=== PATIENT | female | born 1990 | race Caucasian/White ===

== ENCOUNTER 2019-02-17 21:44 | Inpatient (IN) | payer OTHER ==
[2019-02-17] MEDS ORDERED: TERBUTALINE 1 MG/ML VIAL SQ PRN (22:56)
[2019-02-17] MEDS ORDERED: CARBOPROST TROMETHAMINE 250 MCG/ML 1 ML AMP IM PRN (22:56)
[2019-02-17] MEDS ORDERED: OXYTOCIN 10 UNIT/ML 1 ML VIAL IM PRN (22:56)
[2019-02-17] MEDS ORDERED: METHYLERGONOVINE 0.2 MG/ML 1 ML AMP IM PRN (22:56)
[2019-02-17] MEDS ORDERED: LIDOCAINE 0.5% (PF) 5 MG/ML (50 ML SDV) SQ PRN (22:56)
[2019-02-17 23:28] LABS: Basophils % (A) 0 %; Eosinophils # (A) 0.1 k/uL (0-0.7); Eosinophils % (A) 1 %; HCT 38.2 % (34.0-46.0); HGB 12.5 gm/dL (11.4-16.0); Lymphocytes # (A) 3.1 k/uL (1.0-4.8); Lymphocytes % (A) 26 %; MCH 27.5 pg (25.0-35.0); MCHC 32.7 g/dL (31.0-37.0); MCV 84.1 fL (80.0-100.0); Mean Platelet Volume 9.8; Monocytes # (A) 0.6 k/uL (0-1.0); Monocytes % (A) 5 %; Neutrophils # (A) 7.7 k/uL (1.3-7.7); Neutrophils % (A) 66 %; Platelet Count 184 k/uL (150-450); RBC 4.54 m/uL (3.80-5.40); RDW 14.2 % (11.5-15.5); WBC 11.6 k/uL (3.8-10.6)
[2019-02-17] MEDS: LACTATED RINGERS 1,000 ML IV SCH (23:36)
[2019-02-17 23:46] VITALS: BMI 29.9
--- NOTE | 2019-02-18 04:16 | P.HPOB ---
History of Present Illness H&P Date: 02/18/19 Chief Complaint: IUP @ 40 1/7 weeks, active labor This is a pleasant 28-year-old 2 para 1001 that presents to labor and delivery with complaints of regular painful contractions. He since he states the contractions started a few hours prior to presentation to the hospital. Patient was a late transfer at [address] Royal. She denied rupture of membranes, vaginal bleeding and notes good movement. Patient's care was essentially uncomplicated. She did have a history of hypothyroidism for which she was been treated with levothyroxine. She is rubella nonimmune and will need MMR post . On bloodwork should a blood type of A+, rubella nonimmune, RPR nonreactive, hepatitis B surface antigen negative, HIV negative, she did pass her one-hour Glucola on 12/05/18 with a result of 132. Group beta strep was negative on 01/15/19. Review of Systems Constitutional: Denies chills, Denies fatigue, Denies fever Ears, nose, mouth and throat: Denies headache Cardiovascular: Reports edema, Reports leg edema Respiratory: Denies dyspnea Gastrointestinal: Denies constipation, Denies diarrhea Genitourinary: Reports Past Medical History Past Medical History: Thyroid Disorder History of Any Multi-Drug Resistant Organisms: None Reported Additional Past Surgical History / Comment(s): [place] teeth removed at age of 25 Past Anesthesia/Blood Transfusion Reactions: No Reported Reaction Past Psychological History: No Psychological Hx Reported Smoking Status: Never smoker - Past Family History Father Family Medical History: Diabetes Mellitus, Hypertension Medications and Allergies Home Medications Medication Instructions Recorded Confirmed Type Levothyroxine Sodium [Synthroid] 112 mcg PO DAILY 02/17/19 02/17/19 History Allergies Allergy/AdvReac Type Severity Reaction Status Date / Time No Known Allergies Allergy Verified 02/17/19 21:55 Exam Osteopathic Statement: *. No significant issues noted on an osteopathic structural exam other than those noted in the History and Physical/Consult. Vital Signs Temp Pulse Resp BP Pulse Ox 02/17/19 23:03 98.1 F 78 16 127/86 97 02/17/19 22:54 98.1 F 78 16 127/86 97 Intake and Output 02/17/19 02/17/19 02/18/19 14:59 22:59 06:59 Other: Weight 84.096 kg Targeted physical exam was performed and the state in general this a well- nourished well-developed female in no acute distress, breathing is noted to be nonlabored, heart has a regular rate and rhythm, abdomen is noted to be gravid and appropriate for gestational age, heart tones were noted to be category 1 she is estuardo every 2-3 minutes, on cervical exam she is completely dilated with a bulging bag of water amniotomy is performed and clear fluid was obtained. Results Result Diagrams: 02/17/19 23:15 Abnormal Lab Results - Last 24 Hours (Table) 02/17/19 Range/Units 23:15 WBC 11.6 H (3.8-10.6) k/uL Assessment and Plan (1) Term Current Visit: Yes Status: Acute Code(s): Z34.90 - ENCNTR FOR SUPRVSN OF NORMAL , UNSP, UNSP TRIMESTER SNOMED Code(s): 79654435 (2) Active labor Current Visit: Yes Status: Acute Code(s): MHS8835 - SNOMED Code(s): 868769603 Plan: Patient is admitted for expectant management, anticipate spontaneous vaginal delivery. Plan MMR post delivery.
[2019-02-18] MEDS ORDERED: WITCH HAZEL 1 EACH MED..PAD TOPICAL PRN (04:18)
[2019-02-18] MEDS ORDERED: diphenhydrAMINE 25 MG CAP PO PRN (04:18)
[2019-02-18] MEDS ORDERED: MEASLES-MUMPS-RUBELLA VACC/PF 12,500 UNIT/0.5 ML VIAL SQ ONE (04:18)
[2019-02-18] MEDS ORDERED: HYDROcodone/APAP 5-325MG 1 EACH TAB PO PRN (04:18)
[2019-02-18] MEDS ORDERED: BENZOCAINE/MENTHOL SPRAY 1 GM/SPRAY AEROSOL TOPICAL PRN (04:18)
[2019-02-18] MEDS ORDERED: SIMETHICONE 80 MG CHEWABLE PO PRN (04:18)
[2019-02-18] MEDS ORDERED: ACETAMINOPHEN TAB 325 MG TAB PO PRN (04:18)
[2019-02-18] MEDS ORDERED: diphenhydrAMINE 50 MG CAP PO PRN (04:18)
[2019-02-18] MEDS ORDERED: ZOLPIDEM 5 MG TAB PO PRN (04:18)
[2019-02-18] MEDS ORDERED: LANOLIN CREAM 5 GM TUBE TOPICAL PRN (04:18)
[2019-02-18] MEDS ORDERED: HYDROCORTISONE 2.5% RECTAL CREAM 30 GM TUBE RECTAL PRN (04:18)
[2019-02-18] MEDS ORDERED: diphenhydrAMINE 50 MG/ML 1 ML VIAL IVP PRN ×2 (04:18)
--- NOTE | 2019-02-18 04:18 | P.PROBDLV ---
Vaginal Delivery Note - . Vaginal Delivery Note: This is a pleasant 28-year-old 2 para 1001 at 40 and one sevenths weeks that presents to labor and delivery with complaints of regular painful contractions. Patient was admitted and made steady progress. Patient became uncomfortable requesting epidural placement by the anesthesia department. Epidural was placed without difficulty. Patient progressed to complete amniotomy was performed, clear fluid was obtained. With the subsequent contraction she began pushing and had a normal spontaneous vaginal delivery of a viable female infant at 404, weight of 7 lbs. 7 oz. Apgars of 9 and 10 at one and 5 minutes respectively. After a two-minute delayed the umbilical cord was then doubly clamped and cut, and the placenta was delivered spontaneously intact with a three-vessel cord being noted. On inspection the patient's vaginal vault lacerations were noted. The uterus is noted to be firm and below the umbilicus at this time. Estimated blood loss 200 mL, patient and tolerated delivery well and are resting comfortably.
[2019-02-18] MEDS ORDERED: OXYTOCIN 20 UNITS/1000 ML NS 1,000 ML IV SCH (04:30)
[2019-02-18] MEDS ORDERED: ROPIVACAINE 100 MG, fentaNYL (PF) 200 MCG in SODIUM CHLORIDE 0.9% 76 ML EPIDURAL ONE (06:30)
[2019-02-18] MEDS: LACTATED RINGERS 1,000 ML IV SCH ×2 (07:57→16:14)
[2019-02-18] MEDS: SENNOSIDES-DOCUSATE SODIUM 1 EACH TAB PO SCH ×2 (07:58→19:11)
[2019-02-18] MEDS: IBUPROFEN 600 MG TAB PO PRN ×2 (13:11→19:12)
--- NOTE | 2019-02-19 07:30 | P.DS ---
Providers Date of admission: 02/17/19 22:52 Expected date of discharge: 02/19/19 Attending physician: Alexandra Royal Primary care physician: Alexandra oRyal [facility] Course: This is a 28-year-old white female 2 para 1001 EDC 02/16/2019 at 40-2/7 weeks' gestation. Patient presented in spontaneous active labor. is unremarkable, rubella status nonimmune, group B strep cultures negative, blood type A positive. Please see dictated history and physical for details. Artificial amniorrhexis revealed clear fluid. Epidural was placed per patient's request. She went on to spontaneously deliver a liveborn female with Ap gar scores of 9 and 10 at one and 5 minutes respectively. weighed 3375 g or 7 lbs. 7 oz. No suturing was necessary. Please see dictated delivery note for details. This morning the patient and her baby are both doing well. The patient is voiding, ambulating, passing flatus without difficulty. Vital signs are stable and she is afebrile. Fundus is firm and in the midline, symmetric and 18 week size. Extremities are negative for edema. Chest is clear in all garrido. Perineal body is clean and dry, intact. Pain is well tolerated. Breasts are not engorged. Patient is judged to be in very good condition for discharge home. She will follow-up with me in the office in 6 weeks. I have reminded her no intercourse, tampons or douching. We have discussed options for contraception and she is likely to proceed with nexplanon, to be placed in the office. Patient will call me with any fevers shakes or chills, foul smelling or copious lochia, with the passage of large blood clots, with any pain not alleviated by [id number] Advil or Aleve, or indeed with any questions difficulties or concerns. Patient Condition at Discharge: Good Plan - Discharge Summary Discharge Rx Participant: No New Discharge Prescriptions: No Action Levothyroxine Sodium [Synthroid] 112 mcg PO DAILY Discharge Medication List Levothyroxine Sodium [Synthroid] 112 mcg PO DAILY 02/17/19 [History] Follow up Appointment(s)/Referral(s): Alexandra Royal MD [Primary Care Provider] - 6 Weeks Discharge Disposition: HOME SELF-CARE
--- NOTE | 2019-02-19 07:46 | P.MSEPDOC ---
Presenting Problems - Arrival Data Date of Arrival on Unit: 02/17/19 Time of Arrival on Unit: 22:54 Mode of Transport: Ambulatory - Complaint OB-Reason for Admission/Chief Complaint: Possible Onset of Labor Medical History - Information : 2 Para: 1 Term: 1 : 0 Abortions: Spontaneous or Elective: 0 Number of Living Children: 1 - Gestational Age Gestational Age by EVELYN (wks/days): 40 Weeks and 2 Days Review of Systems - Review of Systems Constitutional: No problems Breast: No problems ENT: No problems Cardiovascular: No problems Respiratory: No problems Gastrointestinal: No problems Genitourinary: No problems Musculoskeletal: No problems Neurological: No problems Skin: No problems Vital Signs - Temperature Temperature: 97.7 F Temperature Source: Oral - Pulse Right Brachial Pulse Rate: 84 Pulse Assessment Method: Automatic Cuff - Respirations Respiratory Rate: 14 Oxygen Delivery Method: Room Air - Blood Pressure Right Arm Blood Pressure: 115/72 Blood Pressure Mean: 86 Blood Pressure Source: Automatic Cuff Medical Screen Scoring (Pre) - Cervical Exam Dilation: 4-7 cm = 2 Membranes: Intact - Uterine Contractions Frequency: < 36 weeks = 6 Duration: N/A Intensity: N/A - Maternal Vital Signs Maternal Temperature: N/A Maternal Blood Pressure: N/A Signs of Preeclampsia: N/A Maternal Respirations: N/A - Maternal Trauma Maternal Trauma: N/A - Assessment - Baby A Baseline FHR: 130 Heart Rate - NICHD Category: Category I (Normal) = 0 NST: Reactive Position: N/A Station: N/A - Total Score - Baby A Total Score - Baby A: 8 - Total Score - Baby B Total Score - Baby B: 8 - Total Score - Baby C Total Score - Baby C: 8 - Level of Risk - Baby A Level of Risk - Baby A: Medium (6-9) - Level of Risk - Baby B Level of Risk - Baby B: Medium (6-9) - Level of Risk - Baby C Level of Risk - Baby C: Medium (6-9) Physician Notification (Pre) - Physician Notified Physician Notified Date: 02/17/19 Physician Notified Time: 22:54 Physician/Practitioner Notifed:: Dr. Queen Spoke With: Dr. Queen New Order Received: Yes - Notification Comment Comment: Dr. Queen called and given report on pt in tr. Pt c/o. VS wnl. Reactive nst. Contractions every 3-4 minutes. Vag exam of 5/70/-2 with change to 6/80/-2 after 45 minutes. GBS NEG. Orders recieved to admit pt to room. Pt may have epidural for pain. Disposition - Disposition OB Disposition: Admit, LDRP Suite I agree with the RN Medical Screening Exam: Yes Risk & Benefit of care provided described in d/c instruction: Yes Diagnosis: LOUSE-BORNE TYPHUS
[2019-02-19 07:59] LABS: Basophils % (A) 0 %; Eosinophils # (A) 0.1 k/uL (0-0.7); Eosinophils % (A) 1 %; HCT 34.1 % (34.0-46.0); Lymphocytes # (A) 3.4 k/uL (1.0-4.8); Lymphocytes % (A) 37 %; MCH 27.6 pg (25.0-35.0); MCHC 32.2 g/dL (31.0-37.0); MCV 85.7 fL (80.0-100.0); Mean Platelet Volume 9.9; Monocytes # (A) 0.5 k/uL (0-1.0); Monocytes % (A) 5 %; Neutrophils # (A) 4.9 k/uL (1.3-7.7); Neutrophils % (A) 53 %; Platelet Count 156 k/uL (150-450); RBC 3.98 m/uL (3.80-5.40); RDW 14.5 % (11.5-15.5); WBC 9.2 k/uL (3.8-10.6)
[2019-02-19] MEDS: SENNOSIDES-DOCUSATE SODIUM 1 EACH TAB PO SCH (08:09)
[2019-02-19] MEDS: IBUPROFEN 600 MG TAB PO PRN (08:10)
[2019-02-19 08:20] VITALS: BP 109/72; PULSE 73; RESP 16; TEMP 97.8
== END 2019-02-19 14:30 | disposition home or self-care (01) | DRG 807 ==
LOC: FBPOP 21:44 → 4FBP 22:52
PROVIDERS: ADMIT Obstetrics & Gynecology Obstetrics; ATTEND Obstetrics & Gynecology
PROC: 10E0XZZ Delivery of Products of Conception, External Approach (ICD-10-PCS; principal; 2019-02-17)
DX: O99.284 Endocrine, nutritional and metabolic diseases complicating childbirth (principal); Z37.0 Single live birth; E03.9 Hypothyroidism, unspecified; Z3A.40 40 weeks gestation of pregnancy; Z79.890 Hormone replacement therapy; Z82.49 Family history of ischemic heart disease and other diseases of the circulatory system; Z83.3 Family history of diabetes mellitus
CPT/HCPCS: 59025; 85025; 86850; 86900; 86901; 90707; 99213

== ENCOUNTER 2021-12-05 06:00 | Inpatient (IN) | payer OTHER ==
[2021-12-05] MEDS ORDERED: LIDOCAINE 1% (PF) 10 MG/ML (30 ML SDV) SQ PRN (06:20)
[2021-12-05] MEDS ORDERED: METHYLERGONOVINE 0.2 MG/ML 1 ML AMP IM PRN (06:20)
[2021-12-05] MEDS ORDERED: TERBUTALINE 1 MG/ML VIAL SQ PRN (06:20)
[2021-12-05] MEDS ORDERED: CARBOPROST TROMETHAMINE 250 MCG/ML 1 ML AMP IM PRN (06:20)
[2021-12-05] MEDS ORDERED: OXYTOCIN 10 UNIT/ML 1 ML VIAL IM PRN (06:20)
[2021-12-05] MEDS ORDERED: OXYTOCIN 30 UNITS/500 ML NS 30 UNIT in SALINE 1 500ML.BAG IV SCH (06:30)
[2021-12-05] MEDS: LACTATED RINGERS 1,000 ML IV SCH ×2 (06:38→11:42)
[2021-12-05 06:52] LABS: Basophils % (A) 0 %; Eosinophils # (A) 0.1 k/uL (0-0.7); Eosinophils % (A) 1 %; HCT 37.6 % (34.0-46.0); HGB 12.2 gm/dL (11.4-16.0); Hypochromasia Slight; Lymphocytes % (A) 30 %; MCH 28.4 pg (25.0-35.0); MCHC 32.5 g/dL (31.0-37.0); MCV 87.3 fL (80.0-100.0); Mean Platelet Volume 10.4; Monocytes # (A) 0.4 k/uL (0-1.0); Monocytes % (A) 4 %; Neutrophils % (A) 61 %; Platelet Count 227 k/uL (150-450); RBC 4.31 m/uL (3.80-5.40); WBC 9.8 k/uL (3.8-10.6)
--- NOTE | 2021-12-05 07:47 | P.HPOB ---
History of Present Illness H&P Date: 12/05/21 Chief Complaint: Here for induction of labor with severe IUGR fetus, at 37 weeks gestation, This is a 31-year-old female 3 para 2001 EDC 12/25/2021 at 37 weeks gestation who presents today on recommendation of maternal medicine specialist, for persistent severe IUGR, good first trimester dating. has been followed by biophysical profiles, umbilical artery Doppler examinations, and twice weekly nonstress testing, all of which has been reassuring. Steriods have been given. Patient states fetus is been active throughout the . Past medical history is significant for hypothyroidism. Past surgical history is negative. Current medications 112 mg Synthroid daily, vitamin daily, baby aspirin daily. ALLERGIES none known. history is significant for negative group B strep cultures, rubella status immune. Blood type B positive. Gonorrhea and chlamydia cultures, blood type is B surface antigen, urine culture all negative. One-hour Glucola within normal limits. Family history is essentially unremarkable. Social history patient is a nonsmoker, she is , she denies alcohol or drug use. On exam patient is 5 foot 5 inches, 198 pounds, blood pressure 117/85. Vital signs are stable and she is afebrile. The general exam is within normal limits. The cervix is 1 cm dilated, soft, vertex presentation, -2 station, approximately 40% effaced. Artificial amniorrhexis does reveal clear fluid. heart rate is consistent with reactive NST with frequent accelerations. There are mild uterine contractions occurring at this time, every 3-5 minutes apart. Impression: 37 week intrauterine , severe IUGR, here for induction of labor, all signs reassuring. Plan: Analgesic options have been reviewed. Oxytocin per hospital protocol. Close maternal and surveillance. Anticipate normal spontaneous vaginal delivery. Review of Systems Constitutional: Reports as per HPI Past Medical History Past Medical History: Thyroid Disorder History of Any Multi-Drug Resistant Organisms: None Reported Additional Past Surgical History / Comment(s): [place] teeth removed at age of 25 Past Anesthesia/Blood Transfusion Reactions: No Reported Reaction Past Psychological History: No Psychological Hx Reported Smoking Status: Never smoker Past Alcohol Use History: None Reported Past Drug Use History: None Reported - Past Family History Father Family Medical History: Diabetes Mellitus, Hypertension Medications and Allergies Home Medications Medication Instructions Recorded Confirmed Type Levothyroxine Sodium [Synthroid] 112 mcg PO DAILY 02/17/19 12/05/21 History Aspirin 81 mg PO DAILY 12/05/21 12/05/21 History Omeprazole [PriLOSEC] 10 mg PO DAILY 12/05/21 12/05/21 History Pnv No.95/Ferrous Fum/Folic AC 1 each PO DAILY 12/05/21 12/05/21 History [ Multivitamin Tablet] Allergies Allergy/AdvReac Type Severity Reaction Status Date / Time No Known Allergies Allergy Verified 12/05/21 06:20 Exam Vital Signs Temp Pulse Resp BP Pulse Ox 12/05/21 06:43 96.8 F L 90 16 117/85 99 Intake and Output 12/04/21 12/05/21 12/05/21 22:59 06:59 14:59 Other: Weight 89.811 kg Results Result Diagrams: 12/05/21 06:30 Assessment and Plan Assessment: 37 week intrauterine , severe IUGR fetus, induction of labor today based on recommendation for maternal medicine specialists. All signs reassuring. Plan: Close maternal and suveillance. Oxytocin per hospital protocol. Analgesic options reviewed. Anticipate . Time with Patient: Less than 30
[2021-12-05] MEDS ORDERED: fentaNYL (PF) 50 MCG/ML 5 ML AMP ONE (11:24)
[2021-12-05] MEDS ORDERED: SODIUM CHLORIDE 0.9% 100 ML BAG ONE (11:24)
[2021-12-05] MEDS ORDERED: ROPIVACAINE 5MG/ML 20ML VIAL ONE (11:24)
--- NOTE | 2021-12-05 13:27 | P.PROBDLV ---
Vaginal Delivery Note - . Vaginal Delivery Note: This is a 31-year-old female 3 para 2001 EDC 12/25/2021 who presents at 37 weeks gestation per recommendation of maternal medicine for induction of labor for severe intrauterine growth restriction, followed carefully for the office with all reassuring findings. Please see dictated history and physical for details. Artificial amniorrhexis revealed clear fluid. Oxytocin was started and titrated per hospital protocol. Patient requested epidural. heart tones were reassuring throughout the first and second stages of labor. She became completely dilated at 1302 hrs. and began the second stage of labor at that time. Perineal body was prepped and draped in usual sterile fashion. With excellent maternal expulsive efforts the infant's head delivered occiput anterior and she restituted accordingly. There was no nuchal cord noted. Patient was officially delivered of a liveborn female at 1305 hrs. Umbilical cord was doubly clamped and ligated, she was handed to waiting nurses for evaluation where scores of 9 and 10 at one and 5 minutes respectively were given. The placenta delivered spontaneously, it was inspected and noted to be intact with trivascular cord at 1314 hrs. It was sent to pathology for further evaluation. At this time the perineal body was redraped. Careful inspection of the cervix, vagina, perineum, periurethral, and perirectal areas revealed no lacerations and no defects. The fundus is firm and in the midline, symmetric and 18 week size. Total estimated blood loss 250 mL's. Infant's weight 5 lbs. 1 oz. or 2295 g. Patient and her family are allowed to begin the bonding experience in the LDR.
[2021-12-05] MEDS ORDERED: LANOLIN CREAM 5 GM TUBE TOPICAL PRN (13:28)
[2021-12-05] MEDS ORDERED: SIMETHICONE 80 MG CHEWABLE PO PRN (13:28)
[2021-12-05] MEDS ORDERED: ACETAMINOPHEN TAB 325 MG TAB PO PRN (13:28)
[2021-12-05] MEDS ORDERED: diphenhydrAMINE 50 MG CAP PO PRN (13:28)
[2021-12-05] MEDS ORDERED: HYDROCORTISONE 2.5% RECTAL CREAM 30 GM TUBE RECTAL PRN (13:28)
[2021-12-05] MEDS ORDERED: BENZOCAINE/MENTHOL SPRAY 1 GM/SPRAY AEROSOL TOPICAL PRN (13:28)
[2021-12-05] MEDS ORDERED: diphenhydrAMINE ELIXIR 25 MG/10 ML CUP PO PRN (13:28)
[2021-12-05] MEDS ORDERED: diphenhydrAMINE 50 MG/ML 1 ML VIAL IVP PRN ×2 (13:28)
[2021-12-05] MEDS ORDERED: ZOLPIDEM 5 MG TAB PO PRN (13:28)
[2021-12-05] MEDS ORDERED: diphenhydrAMINE 25 MG CAP PO PRN (13:28)
[2021-12-05] MEDS: IBUPROFEN 600 MG TAB PO SCH ×3 (16:08→21:32)
[2021-12-05] MEDS ORDERED: SENNOSIDES 8.6 MG TAB PO SCH (20:00)
[2021-12-05] MEDS: SENNOSIDES-DOCUSATE SODIUM 1 EACH TAB PO SCH (20:23)
[2021-12-06] MEDS: IBUPROFEN 600 MG TAB PO SCH ×2 (04:05→06:07)
[2021-12-06] MEDS: SENNOSIDES-DOCUSATE SODIUM 1 EACH TAB PO SCH (08:37)
--- NOTE | 2021-12-06 08:51 | P.DS ---
Providers Date of admission: 12/05/21 06:09 Expected date of discharge: 12/06/21 Attending physician: Alexandra Royal Primary care physician: Johana Simpson [facility] Course: This is a 31-year-old female 3 para 2001 EDC 12/25/2021 at 37 weeks gestation presented for induction on recommendation of maternal medicine specialists, for severe symmetric IUGR. was followed very carefully, please see dictated history and physical for details. Artificial amniorrhexis revealed clear fluid. Oxytocin was started and titrated per hospital protocol. Epidural was placed per her request. She delivered vaginally a liveborn female with scores of 9 and 10 at one and 5 minutes respectively. No lacerations were encountered. Estimated blood loss 250 mL's. Infant weighed 5 lbs. 1 oz. or 2295 g. Please see dictated delivery note for details. This morning the patient is doing quite well. She is voiding, ambulating, passing flatus without difficulty. Vital signs are stable and she is afebrile. is also doing well. Pain is well tolerated. Patient is being discharged home today in very good condition. She will follow-up in the office with me in 6 weeks. I have reminded her no intercourse, tampons or douching. She will use [id number] Advil or Aleve, or Motrin as needed for pain. She will call with any fevers shakes or chills, foul smelling or copious lochia, with the passage of large blood clots, or with any pain not alleviated by [id number] products. We have discussed options for contraception and we will review this further in the office. Gay infant will follow-up with outside sales advertising executive as per recommendations. Assessment: Doing well first day Patient Condition at Discharge: Good Plan - Discharge Summary Discharge Rx Participant: No New Discharge Prescriptions: No Action Levothyroxine Sodium [Synthroid] 112 mcg PO DAILY Pnv No.95/Ferrous Fum/Folic AC [ Multivitamin Tablet] 1 each PO DAILY Omeprazole [PriLOSEC] 10 mg PO DAILY Aspirin 81 mg PO DAILY Discharge Medication List Levothyroxine Sodium [Synthroid] 112 mcg PO DAILY 02/17/19 [History] Aspirin 81 mg PO DAILY 12/05/21 [History] Omeprazole [PriLOSEC] 10 mg PO DAILY 12/05/21 [History] Pnv No.95/Ferrous Fum/Folic AC [ Multivitamin Tablet] 1 each PO DAILY 12/05/21 [History] Follow up Appointment(s)/Referral(s): Alexandra Royal MD [STAFF PHYSICIAN] - 6 Weeks Discharge Disposition: HOME SELF-CARE
[2021-12-06 09:01] VITALS: RESP 15
[2021-12-06] MEDS ORDERED: LEVOTHYROXINE 112 MCG TAB PO SCH (09:13)
[2021-12-06 12:09] VITALS: BP 119/80; PULSE 70; TEMP 98.2
[2021-12-07] MEDS ORDERED: LEVOTHYROXINE 112 MCG TAB PO SCH (06:30)
== END 2021-12-06 13:40 | disposition home or self-care (01) | DRG 807 ==
LOC: 4FBP 06:09
PROVIDERS: ADMIT Obstetrics & Gynecology; ATTEND Obstetrics & Gynecology
PROC: 10E0XZZ Delivery of Products of Conception, External Approach (ICD-10-PCS; principal; 2021-12-05)
PROC: 10907ZC Drainage of Amniotic Fluid, Therapeutic from Products of Conception, Via Natural or Artificial Opening (ICD-10-PCS; 2021-12-05)
PROC: 4A0HXCZ Measurement of Products of Conception, Cardiac Rate, External Approach (ICD-10-PCS; 2021-12-05)
PROC: 3E033VJ Introduction of Other Hormone into Peripheral Vein, Percutaneous Approach (ICD-10-PCS; 2021-12-05)
DX: O36.5930 Maternal care for other known or suspected poor fetal growth, third trimester, not applicable or unspecified (principal); Z37.0 Single live birth; O99.284 Endocrine, nutritional and metabolic diseases complicating childbirth; E03.9 Hypothyroidism, unspecified; Z3A.37 37 weeks gestation of pregnancy; Z79.82 Long term (current) use of aspirin; Z79.890 Hormone replacement therapy; Z82.49 Family history of ischemic heart disease and other diseases of the circulatory system; Z83.3 Family history of diabetes mellitus
CPT/HCPCS: 85025; 86850; 86900; 86901; 88307

== ENCOUNTER → 2023-04-10 | Outpatient (CLI) | payer OTHER ==
--- NOTE | 2023-04-10 16:17 | US ---
EXAMINATION TYPE: US thyroid st tissue head/neck DATE OF EXAM: 04/10/2023 COMPARISON: NONE CLINICAL INDICATION: Female, 33 years old with history of E03.9 HYPOTHYROIDISM, UNSPECIFIED E04.1 NON TOXIC S; Hypothyroid GLAND SIZE: Right Lobe: 4.0 x 1.7 x 1.4 cm Overall Parenchyma: heterogenous Left Lobe: 3.8 x 1.1 x 1.4 cm Overall Parenchyma: heterogenous Isthmus Thickness: 0.4 cm NODULES RIGHT: # of nodules measured on right: 0 LEFT: # of nodules measured on left: 0 ISTHMUS: # of nodules measured in the isthmus: 0 Bilateral neck scanned, no evidence of lymphadenopathy. Bilateral thyroid heterogeneous with no defin ite nodules visualized. IMPRESSION: Diffusely heterogenous thyroid gland without discrete nodule. This can be seen in Koby's disease versus other etiologies.
== END | disposition home or self-care (01) ==
LOC: RADUSWWP 15:40
PROVIDERS: ATTEND Family Medicine
DX: E03.9 Hypothyroidism, unspecified (principal); E04.1 Nontoxic single thyroid nodule
CPT/HCPCS: 76536